=== PATIENT | male | born 1955 | race Two or more races ===

== ENCOUNTER 2016-08-04 15:33 | Emergency (ER) | payer OTHER ==
[~2016-08-04] VITALS: Wt 110.0 kg
[~2016-08-04 15:33] MED LIST: ASPI-535; ERGO500014 PO; GABA300C16 PO; LORA-396; LOSA100T7 PO; MELO7.5O PO; OMEP40CA6 PO; TRAM100T27 PO; ZOLP10TA5
[2016-08-04] MEDS ORDERED: BUPIVACAINE 0.5% (SDV) 30 ML INJ INJ ONE (16:00)
[2016-08-04] MEDS ORDERED: METHYLPREDNISOLONE 40 MG INJ IV ONE (16:00)
[2016-08-04] MEDS ORDERED: IBUP800T25 PO (16:59)
[2016-08-04] MEDS ORDERED: HYDR-902 PO (16:59)
--- NOTE | 2016-08-04 17:03 | ERD ---
ER Documentation Chief Complaint Date/Time DATE: 08/04/16 TIME: 16:59 Chief Complaint LEFT KNEE PAIN X 1 WEEK HPI This 60-year-old male who stated he said left knee pain for the past 70 days. He said he woke up one morning and felt some pain in the medial aspect of his knee joint. He says when he walks he feels pain when he rests he does not. The pain is described as sharp and nonradiating. No known trauma or twisting injury. Patient states the more he uses it the worse it gets. No erythema no swelling no calf or thigh pain ROS All systems reviewed and are negative except as per history of present illness. Medications Home Meds Active Scripts Hydrocodone/Acetaminophen (Corinne 10-325 Tablet) 1 Each Tablet, 1 TAB PO Q6H Y for PAIN, #20 TAB Prov:LYNETTE KUMAR DO 08/04/16 Ibuprofen* (Motrin*) 800 Mg Tab, 800 MG PO Q6H Y for PAIN AND OR ELEVATED TEMP, #30 TAB Prov:LYNETTE KUMAR DO 08/04/16 Reported Medications Losartan Potassium* (Losartan Potassium*) 100 Mg Tablet, 100 MG PO DAILY, TAB 10/05/15 Ergocalciferol* (Drisdol* (Vitamin D2)) 50,000 Unit Capsule, 68017 UNIT PO Q7D, CAP 10/05/15 Meloxicam* (Meloxicam*) 7.5 Mg/5 Ml Oral.susp, 15 MG PO DAILY, #300 ML 10/05/15 Gabapentin* (Gabapentin*) 300 Mg Capsule, 300 MG PO BID, #60 CAP 10/05/15 Tramadol Hcl* (Tramadol* ER) 100 Mg Tab.er.24h, 50 MG PO DAILY, #30 TAB 10/05/15 Omeprazole* (Omeprazole*) 40 Mg Capsule.dr, 40 MG PO DAILY, CAP 08/09/14 Lorazepam* (Ativan*) 0.5 Mg Tablet, DAILY 09/09/11 Aspirin Ec (Aspir 81) 81 Mg Tablet.dr, DAILY 09/09/11 Zolpidem Tartrate* (Zolpidem Tartrate*) 10 Mg Tablet, HS 09/09/11 Allergies Allergies: Coded Allergies: No Known Allergies (Verified Allergy, Mild, 5/4/15) PMhx/Soc History of Surgery: Yes (LEFT BROKEN ANKLE, RIGHT KNEE MENISCUS) Anesthesia Reaction: No Hx Neurological Disorder: No Hx Respiratory Disorders: No Hx Cardiac Disorders: Yes (HTN) Hx Psychiatric Problems: No Hx Miscellaneous Medical Probl: No Hx Alcohol Use: Yes (30 YRS AGO) Hx Substance Use: No Hx Tobacco Use: Yes (1 PPD) Smoking Status: Current every day smoker FmHx Family History: No coronary disease Physical Exam Vitals Vital Signs Date Time Temp Pulse Resp B/P Pulse Ox O2 Delivery O2 Flow Rate FiO2 08/04/16 15:35 98.0 89 18 112/99 99 Physical Exam Const: Well-developed, well-nourished Head: Atraumatic, normocephalic Eyes: Normal Conjunctiva, PERRLA, EOMI, normal sclera, no nystagmus ENT: Normal External Ears, Nose and Mouth, moist mucus membranes. Neck: Full range of motion. No meningismus, no lymphadenopathy. Resp: Clear to auscultation bilaterally, no wheezing, rhonchi, rales Cardio: Regular rate and rhythm, no murmurs, S1 S2 present Abd: Soft, non tender x 4, non distended. Normal bowel sounds, no guarding or rebound, no pulsitile abdominal masses or bruits Skin: No petechiae or rashes, no ecchymosis , no maculopapular rash Back: No midline or flank tenderness Ext: No cyanosis, or edema, FROM x 4, normal inspection, neurovascularly intact x 4, there is pain in the left knee medial joint space with pain with medial stress. No clicking or sticking no erythema no effusion Neur: Awake and alert, STR 5/5 x 4, sensation intact x 4, no focal findings, cerebellum intact Psych: Normal Mood and Affect Results 24 hrs Current Medications Medications (Trade) Dose Ordered Sig/Rupal Route PRN Reason Start Time Stop Time Status Last Admin Dose Admin Bupivacaine HCl (Marcaine 0.5% (Sdv)) 30 ml ONCE ONCE INJ 08/04/16 16:00 08/04/16 16:01 DC Methylprednisolone Sodium Succinate (Solu-Medrol) 40 mg ONCE ONCE IV 08/04/16 16:00 08/04/16 16:01 DC Procedures/MDM Left knee x-ray interpreted by me, 2 view: There is some loss of medial joint space height with osteophyte lipping consistent with degenerative joint disease , no fracture is seen soft tissues are normal Procedure by me: Left knee injection The skin was prepped with Betadine and aseptic technique 5 cc of solution was injected into the left knee using a 27-gauge inch and a half needle. 1 cc of 40 mg Solu-Medrol with 4 cc of 0.5% bupivacaine Ultrasound was used to confirm joint space Patient tolerated the procedure well with adequate pain control Advised patient to get MRI Departure Diagnosis: Primary Impression: Arthritis of left knee Additional Impression: Knee pain Laterality: left Chronicity: acute Qualified Code: M25.562 - Acute pain of left knee Condition: Stable Patient Instructions: Knee Pain, Uncertain Cause LYNETTE KUMAR DO Aug 04, 2016 17:03
--- NOTE | 2016-08-04 17:09 | RADRPT ---
PROCEDURE: XR Knee. CLINICAL INDICATION: Left knee pain. TECHNIQUE: AP, lateral, and oblique views of the left knee are available for review. COMPARISON: None available FINDINGS: There is moderate osteoarthritic changes seen in the medial and patellofemoral compartments with kelvin nt space narrowing and osteophytes. Chondrocalcinosis is seen in the medial and lateral compartment s.. No acute fracture or dislocation is seen. No radiopaque foreign body is identified. Alignment is anatomic. No joint effusion is seen. IMPRESSION: 1. Moderate osteoarthritis of the medial and patellofemoral compartments. 2. Chondrocalcinosis. 3. No acute fracture or dislocation is seen. RPTAT: HH .Blaise Mcguire MD, MD Date Time Electronically viewed and signed by .Blaise Mcguire MD, on 08/04/2016 17:08 .L/
[2016-08-04 17:22] VITALS: BP 154/87; PULSE 78; RESP 16; TEMP 98.3
== END 2016-08-04 17:24 | disposition home or self-care (01) ==
LOC: FTE 15:33
DX: M17.9 Osteoarthritis of knee, unspecified (principal); I10 Essential (primary) hypertension; F17.210 Nicotine dependence, cigarettes, uncomplicated
CPT/HCPCS: 20610; 73560; J2920; Z7502; Z7610

== ENCOUNTER 2017-08-15 06:04 | Day surgery (SDC) | END 2017-08-15 13:00 | disposition home or self-care (01) ==